=== PATIENT | female | born 1960 | race African-American/Black ===

== ENCOUNTER 2024-10-24 11:12 | Emergency (ER) | payer MEDICARE, MEDICAID, SELFPAY ==
[2024-10-24] VITALS (8 sets, daily range): BP systolic 137–153; BP diastolic 58–88; PULSE 70–87; RESP 13–16; TEMP 36.5–36.6; O2SAT 98–100
--- NOTE | ~2024-10-24 | CT_ITS ---
EXAMINATION: CT abdomen pelvis wo con DATE: 10/24/2024 14:32 INDICATION: Possible rectal impaction TECHNIQUE: Computed tomography (CT) of the abdomen and pelvis was performed without intravenous contr ast. The dose-length product was 634.37 mGy-cm. Automated exposure control and iterative reconstructi on technique were employed. COMPARISON: None. FINDINGS: Cardiomegaly. There is left lower lobe airspace consolidation. Moderate pericardial effusio n. Small pleural effusions. There are calcified granulomas of the spleen. There is extensive right re nal arterial calcification. The left kidney is surgically absent. Nonobstructive bowel gas pattern. T here is nonspecific presacral soft tissue. Moderate lower thoracic and lumbar spondylosis.. Gallbladd er is present. No free air. IMPRESSION: 1. No acute abdominal abnormality. 2: Left lower lobe airspace consolidation which may represent atelectasis or pneumonia. 3: Small pleural effusions. 4: Moderate pericardial effusion. Reviewed, dictated and finalized at location A. IMPRESSION: 1. No acute abdominal abnormality. 2: Left lower lobe airspace consolidation which may represent atelectasis or p neumonia. 3: Small pleural effusions. 4: Moderate pericardial effusion.
[2024-10-24 11:56] LABS: Hematocrit 26.1 % (37.0-47.0); Hemoglobin 7.9 g/dL (12.0-15.0); Immature Granulocyte Percent A 0.6 % (0-0.5); Lymphocytes Absolute Auto 0.92 K/mm3 (0.9-3.2); Mean Corpuscular HGB Conc 30.3 g/dl (32-36); Mean Corpuscular Hemoglobin 25.6 pg (26-34); Mean Corpuscular Volume 84.7 fl (80-100); Nucleated Red Blood Cells Absolute Auto 0.000 K/mm3 (0.0-0.012); Nucleated Red Blood Cells Perc 0.0 % (0.0-0.2); Platelet Count Result 239 k/mm3 (150-375); Red Blood Count 3.08 M/mm3 (4.2-5.4); White Blood Count 7.8 K/mm3 (4.5-10.0)
[2024-10-24 12:03] LABS: Alanine Aminotransferase 14 U/L (6-35); Albumin Level 3.6 g/dL (3.5-5.1); Alkaline Phosphatase 93 U/L (38-126); Anion Gap 11 mmol/L (4-12); Aspartate Amino Transferase 25 U/L (14-36); Bilirubin,Total 0.6 mg/dL (0.2-1.3); Blood Urea Nitrogen 37 mg/dL (7-17); Calcium 9.1 mg/dL (8.4-10.2); Carbon Dioxide 28 mmol/L (22-30); Chloride 88 mmol/L (98-107); Estimated Glomerular Filt Rate 8; Glucose 114 mg/dL (65-110); Potassium 3.7 mmol/L (3.4-5.0); Sodium 127 mmol/L (137-145); Total Protein 7.6 g/dL (6.3-8.2)
[2024-10-24 12:10] LABS: INR 1.2; Prothrombin Time 15.1 Seconds (11.1-14.7)
[2024-10-24 12:11] LABS: Partial Thromboplastin Time 32.7 Seconds (22.3-36.8)
--- OUTSIDE RECORDS SUMMARY | 2024-10-24 13:37 | XMS_ITS | Clinical Summary ---
Author Organization [facility] Address [address] [place] [id number] Care Team Providers Care Certified Nursing Assistant Instructor Name Role Phone Unavailable Primary Care Provider Unavailabl e Social History Tobacco Use Types Packs/Day Years Used Date Smoking Tobacco: Never Assessed Comments Unknown Sex and Gender Information Value Date Recorded Sex Assigned at Not on file Legal Sex Female 3:27 PM [employer] Gender Identity Not on file Sexual Orientation Not on file Plan of Treatment Health Maintenance Due Date Last Done Comments Hepatitis C Virus (HCV) Screening 1960 Pap Smear 11/07/1980 Cervical Cancer Screening (CCS) 11/07/1989 HPV/Cotest 11/07/1989 Cologuard 11/07/2004 Colonoscopy 11/07/2004 Colorectal Cancer Screening 11/07/2004 Immunochemical Fecal Occult Blood 11/07/2004 Pneumococcal Immunization (5 0+ years) (1 of 1 - PCV) 11/07/2009 Zoster Immunization (1 of 2) 11/07/2009 SARS-COV-2 Immunization ( - season) 2023 02/03/2021, 06/13/2020, 05/20/2020 Influenza Immunization (#1) 2024 02/03/2021 Respiratory Syncytial Virus (RSV) Immunization (Adult) (1 - 1-dose 75+ series) 11/07/2034 DTaP/Tdap/Td Immunization Discontinued 2014, 10/04/1992 TdaP Immunization Completed 07/24/2014 Hepatitis B Immunization Aged Out No longer eligible based on patient's age to complete this topic Human Papillomavirus (HPV) Immunization Aged Out No longer eligible based on patient's age to complete this topic Meningococcal Immunization (ACWY) Aged Out No longer eligible based on patient's age to complete this topic Rotavirus Immunization Aged Out No lo nger eligible based on patient's age to complete this topic Insurance MEDICARE C [facility] on file
--- NOTE | 2024-10-24 14:07 | ED.GENADULT ---
HPI - General Adult General Chief complaint: GI Bleed Stated complaint: rectal pain with bright red blood Time Seen by Provider: 10/24/24 12:19 History of Present Illness HPI narrative: This is a 63-year-old female with ESRD on HD presenting for rectal pain/bleeding and dizziness. Patient says she has been constipated for several days. She then took MiraLax Dulcolax. She then digitally disimpacted herself. Since then she has been having very loose stools as well as some blood in her stool. Now she has developed dizziness when she stands. She denies fevers chills chest pain difficulty breathing or abdominal pain. Patient last underwent dialysis on Tuesday. At that time she has had her hemoglobin was 7.5. Related Data Allergies Allergy/AdvReac Type Severity Reaction Status Date / Time adalimumab (From Humira) Allergy Unknown Verified 10/24/24 14:39 cefazolin (From Ancef) Allergy Hives Verified 10/24/24 14:39 duloxetine (From Cymbalta) Allergy Rash Verified 10/24/24 14:39 ibuprofen Allergy Hives Verified 10/24/24 14:39 methotrexate Allergy Unknown Verified 10/24/24 14:39 pregabalin (From Lyrica) Allergy Rash Verified 10/24/24 14:39 Exam Narrative: APPEARANCE: No apparent distress. Head: atraumatic. EYES: EOMI, NOSE: Atraumatic NECK: Trachea midline RESPIRATORY: No increased rate of breathing, clear to auscultation CARDIOVASCULAR: RRR, no peripheral edema ABDOMINAL: Non-distended soft nontender no guarding or rebound Rectal exam: No rectal fissures or external hemorrhoids. No stool in the rectal vault. Stool is brown and watery with no evidence of blood. MUSCULOSKELETAl: No obvious deformities NEURO: Alert. Moving 4/4 extremities SKIN:: Warm, dry. Normal color PSYCHIATRIC: Normal affect Course Vital Signs Vital signs: Vital Signs Temperature 97.9 F 10/24/24 11:26 Pulse Rate 74 10/24/24 11:26 Respiratory Rate 16 10/24/24 11:26 Blood Pressure 147/73 H 10/24/24 11:26 Pulse Oximetry 100 10/24/24 11:26 Oxygen Delivery Room Air 10/24/24 11:26 Temperature 97.8 F 10/24/24 12:01 Pulse Rate 73 10/24/24 12:01 Respiratory Rate 14 10/24/24 12:01 Blood Pressure 137/58 L 10/24/24 12:01 Pulse Oximetry 100 10/24/24 12:01 Oxygen Delivery Room Air 10/24/24 11:26 Medical Decision Making [facility] Narrative Medical decision making narrative: -Course: 63-year-old female presenting with rectal pain and bleeding after a manual self disimpaction. She did not have any blood on digital rectal exam here and I expect her bleeding was from digital trauma disimpaction, possibly from an internal hemorrhoid. Since then she has been having loose diuretics stools due to her Dulcolax and MiraLax. She is now orthostatic and likely dehydrated from the diarrhea. She is given 1 L of fluid with improvement in symptoms. Laboratory studies redemonstrated end-stage renal disease but no indication for emergent dialysis and she can complete dialysis on Tuesday. Hemoglobin was 7.9. Patient said her hemoglobin at her dialysis on Tuesday was 7.6 so it is stable. Patient will be discharged. She will go to dialysis on Tuesday where continue to monitor hemoglobin. If it continues to drop and she has any more bloody diarrhea she should return to the ED for re-evaluation. -DDX includes but is not limited to: Internal or external hemorrhoids, rectal fissure, diverticular bleed, rectal trauma, dehydration, over diarrhea medication use Vital Signs Vital Signs: Vital Signs Temperature 97.9 F 10/24/24 11:26 Pulse Rate 74 10/24/24 11:26 Respiratory Rate 16 10/24/24 11:26 Blood Pressure 147/73 H 10/24/24 11:26 Pulse Oximetry 100 10/24/24 11:26 Oxygen Delivery Room Air 10/24/24 11:26 Temperature 97.8 F 10/24/24 12:01 Pulse Rate 73 10/24/24 12:01 Respiratory Rate 14 10/24/24 12:01 Blood Pressure 137/58 L 10/24/24 12:01 Pulse Oximetry 100 10/24/24 12:01 Oxygen Delivery Room Air 10/24/24 11:26 Lab Data 10/24/24 11:36 10/24/24 11:36 Labs: Lab Results 10/24/24 Range/Units 11:36 WBC 7.8 (4.5-10.0) K/mm3 RBC 3.08 L (4.2-5.4) M/mm3 Hgb 7.9 L (12.0-15.0) g/dL Hct 26.1 L (37.0-47.0) % MCV 84.7 (80-100) fl MCH 25.6 L (26-34) pg MCHC 30.3 L (32-36) g/dl RDW 16.1 H (11.5-14.5) % Plt Count 239 (150-375) k/mm3 MPV 9.1 (7.4-10.4) fl Immature Gran % (Auto) 0.6 H (0-0.5) % Neut % (Auto) 77.7 H (45.5-73.1) % Lymph % (Auto) 11.8 L (18.3-44.2) % [place] % (Auto) 7.6 (2.6-8.5) % Eos % (Auto) 1.9 (0-4.4) % Baso % (Auto) 0.4 (0.2-1.2) % Lymph # (Auto) 0.92 (0.9-3.2) K/mm3 [place] # (Auto) 0.6 (0.1-0.6) K/mm3 Eos # (Auto) 0.2 (0-0.3) K/mm3 Baso # (Auto) 0.0 (0.0-0.1) K/mm3 Abs Immat Gran (auto) 0.05 H (0.00-0.031) K/mm3 Absolute Neuts (auto) 6.0 (1.3-6.7) K/mm3 Absolute Nucleated RBC 0.000 (0.0-0.012) K/mm3 Nucleated RBC % 0.0 (0.0-0.2) % PT 15.1 H (11.1-14.7) Seconds INR 1.2 APTT 32.7 (22.3-36.8) Seconds Sodium 127 L (137-145) mmol/L Potassium 3.7 (3.4-5.0) mmol/L Chloride 88 L (98-107) mmol/L Carbon Dioxide 28 (22-30) mmol/L Anion Gap 11 (4-12) mmol/L BUN 37 H (7-17) mg/dL Creatinine 5.21 H (0.7-1.0) mg/dL Estim Creat Clear Calc Not Reportable Estimated GFR 8 L (59 - ) Glucose 114 H (65-110) mg/dL Calcium 9.1 (8.4-10.2) mg/dL Total Bilirubin 0.6 (0.2-1.3) mg/dL AST 25 (14-36) U/L ALT 14 (6-35) U/L Alkaline Phosphatase 93 (38-126) U/L Total Protein 7.6 (6.3-8.2) g/dL Albumin 3.6 (3.5-5.1) g/dL Blood Type B Positive Antibody Screen Negative Discharge Plan Discharge Clinical Impression: Painful rectal bleeding Patient Disposition: Home Condition: Stable Instructions: Antibiotic Form, Acute Diarrhea (ED) Additional Instructions: You were seen in the ED for rectal pain. This is likely from the digital disimpaction that you did. Please continue to drink fluids as normal. Use stool softeners as needed. Please go to dialysis on Tuesday and return to ED if you develop any new or worsening symptoms. Your rectal bleeding should be improving and is important you have your hemoglobin checked at dialysis on Tuesday. Patient Language: Bangladeshi Follow-up/Referrals: PHYSICIAN,FOOD SERVICE CASHIER [Primary Care Provider] -
[2024-10-24] MEDS: Please add drug allergy info to patient profile. 1 EACH XX (14:39)
[2024-10-24] MEDS: SODIUM CHLORIDE 0.9% IV 1,000 ML 999 ML IV CONT (14:40)
== END 2024-10-24 16:15 | disposition home or self-care (01) ==
PROVIDERS: Emergency Medicine; Emergency Provider Emergency Medicine
DX: K62.5 Hemorrhage of anus and rectum (principal); N18.6 End stage renal disease; Z99.2 Dependence on renal dialysis
CPT/HCPCS: 36415; 74176; 80053; 85025; 85610; 85730; 86850; 86900; 86901; 96360; 99284; J7030